=== PATIENT | male | born 2000 | race Two or more races ===

== ENCOUNTER 2020-08-24 09:19 | Outpatient (REF) | payer OTHER, SELFPAY | END 2020-08-24 09:20 | disposition home or self-care (01) | LOC: HO.LAB 09:19 | PROVIDERS: Visit Provider Internal Medicine | DX: Z20.822 Contact with and (suspected) exposure to COVID-19 (principal) | CPT/HCPCS: 36415; C9803; U0003; U0005 ==

== ENCOUNTER 2021-10-14 07:43 | Outpatient (REF) | payer OTHER, SELFPAY ==
[2021-10-14 08:06] LABS: COVID-19 Test Positive (Negative)
== END 2021-10-14 07:44 | disposition home or self-care (01) ==
LOC: HO.LAB 07:43
PROVIDERS: Visit Provider Internal Medicine
DX: Z20.822 Contact with and (suspected) exposure to COVID-19 (principal)
CPT/HCPCS: 87635; C9803